=== PATIENT | female | born 1945 | race Caucasian/White ===

== ENCOUNTER → 2020-06-15 16:24 | Outpatient (CLI) | payer MEDICARE ==
[2009-10-06 11:34] VITALS: BMI 42.8
[2020-06-15 16:50] LABS: BILIRUBIN NEGATIVE (NEGATIVE); KETONE NEGATIVE (NEGATIVE); NITRITE POSITIVE (NEGATIVE); UROBILINOGEN NORMAL mg/dL (< 2)
[2020-06-15 16:51] LABS: WHITE CELLS - URINE >50 HPF (0-4)
[2020-06-15 16:52] LABS: BACTERIA MANY HPF (NONE SEEN); SQUAMOUS EPITHELIAL 0-5 HPF (0-4)
== END | disposition home or self-care (01) ==
LOC: D.LABREF 16:24
PROVIDERS: ATTEND Family Medicine
DX: R30.0 Dysuria (principal)